=== PATIENT | male | born 1985 | race African-American/Black ===

== ENCOUNTER 2019-09-07 19:32 | Emergency (ER) | payer OTHER ==
[~2019-09-07] VITALS: Ht 167.6 cm; Wt 72.6 kg
--- NOTE | 2019-09-07 19:45 | NUR ---
Patient to ER bed 03 to gown for evaluation. Side rails up.
--- NOTE | 2019-09-07 19:50 | NUR ---
Pt brought by police officers, pt presents to ER with anxiety, pt also states he has bodyaches and intermittent chest pressure, skin pink and warm, respirations even and unlabored, cap refill <3.
[2019-09-07 19:55] VITALS: BP_SYST 142
[2019-09-07] MEDS ORDERED: IPRATROPIUM/ALBUTEROL SULFATE 3 ML AMPUL.NEB (DUONEB) INH ONE (20:15)
--- NOTE | 2019-09-07 20:25 | NUR ---
RT at bedside administering breathing treatment. Pt tolerated well.
--- NOTE | 2019-09-07 20:40 | NUR ---
ER Dr. Bocanegra at bedside examining patient.
[2019-09-07 20:52] LABS: BASOPHILS % (AUTO) 0.5 % (0.0-2.0); EOSINOPHILS % (AUTO) 0.7 % (0.0-4.0); HEMATOCRIT 49.4 % (36-54); HEMOGLOBIN 16.1 g/dL (14.0-18.0); LYMPHOCYTES # (AUTO) 1.7 K/uL (1.0-5.5); LYMPHOCYTES % (AUTO) 28.6 % (20.5-51.5); MEAN CORPUSCULAR HEMOGLOBIN 30 pg (27-31); MEAN CORPUSCULAR HGB CONC 33 % (32-36); MEAN CORPUSCULAR VOLUME 91 fL (79.0-98.0); MONOCYTES # (AUTO) 0.5 K/uL (0.0-1.0); MONOCYTES % (AUTO) 8.7 % (1.7-9.3); NEUTROPHILS # (AUTO) 3.7 K/uL (1.8-7.7); NEUTROPHILS % (AUTO) 61.5 % (40.0-70.0); PLATELET COUNT (AUTO) 210 K/uL (130-430); RED BLOOD CELL COUNT(AUTO) 5.43 MIL/uL (4.2-6.2); RED CELL DISTRIBUTION WIDTH 13.8 % (9.0-15.0); WHITE BLOOD COUNT (AUTO) 6.1 K/uL (4.8-10.8)
[2019-09-07 20:57] LABS: ANION GAP 9 (5-15); CALCIUM 8.8 mg/dL (8.4-11.0); CHLORIDE 104 mmol/L (98-107); CREATININE 1.03 mg/dL (0.55-1.30); GLUCOSE 92 mg/dL (70-99); POTASSIUM 4.4 mmol/L (3.5-5.1); SODIUM SERUM 139 mmol/L (136-145); UREA NITROGEN, BLOOD 9 mg/dL (8-21)
[2019-09-07 21:06] LABS: ALANINE AMINOTRANSFERASE 34 U/L (12-78); ALBUMIN 3.9 g/dL (3.4-4.8); ASPARTATE AMINOTRANSFERASE 31 U/L (10-37); TOTAL BILIRUBIN 0.4 mg/dL (0.0-1.0)
[2019-09-07 21:07] LABS: GFR AFRICAN AMERICAN 105 mL/min (>90)
[2019-09-07] MEDS ORDERED: LORazepam 2 MG/ML VIAL IM ONE (21:15)
[2019-09-07] MEDS ORDERED: LORazepam 2 MG/ML VIAL IVP ONE (21:30)
--- NOTE | 2019-09-07 21:54 | NUR ---
Patient was able to provide urine sample; collected and sent to lab.
[2019-09-07 21:56] LABS: BILIRUBIN,URINE NEGATIVE (NEGATIVE); BLOOD, URINE NEGATIVE (NEGATIVE); COLOR,URINE YELLOW (YELLOW); GLUCOSE,URINE NEGATIVE (NEGATIVE); KETONES,URINE NEGATIVE (NEGATIVE); LEUKOCYTE ESTERASE ,URINE 1+ (NEGATIVE); NITRITE, URINE NEGATIVE (NEGATIVE); PROTEIN URINE NEGATIVE (NEGATIVE)
[2019-09-07 22:16] LABS: CLARITY/URINE SLIGHTLY HAZY (CLEAR)
[2019-09-07 22:18] LABS: BARBITURATE, URINE NEGATIVE (NEG <=200); BENZODIAZEPINE, URINE NEGATIVE (NEG <=150); COCAINE, URINE NEGATIVE (NEG <=150); URINE METHADONE NEGATIVE (NEG <=200)
[2019-09-07 22:19] LABS: CANNABINOID, URINE POSITIVE (NEG <=50); OPIATE, URINE NEGATIVE (NEG <=100); PHENCYCLIDINE SCREEN,URINE NEGATIVE (NEG <=25); UR TRICYCLIC ANTIDEPRESSANTS NEGATIVE (NEG <=300); URINE OXYCODONE SCREEN NEGATIVE (NEG <=100); URINE PROPOXYPHENE SCREEN NEGATIVE (NEG <=300)
[2019-09-07 22:29] LABS: BACTERIA,URINE FEW /HPF (None Seen); MUCUS,URINE 2+ /LPF (None Seen); RBC,URINE 0-3 /HPF (0-3); WBC,URINE 20-50 /HPF (0-3)
[2019-09-07 22:30] LABS: URIC ACID CRYSTALS,URINE 0-10 /HPF (None Seen)
[2019-09-07 22:36] LABS: METHAMPHETAMINES SCREEN,URINE POSITIVE (NEG <=500)
[2019-09-07 22:37] LABS: URINE AMPHETAMINE NEGATIVE (NEG <=500)
--- NOTE | 2019-09-07 22:55 | NUR ---
ASSUMED CARE FROM RAEGAN MARIN.
[2019-09-07] MEDS ORDERED: CEPHALEXIN 500 MG CAPSULE PO ONE (23:00)
[2019-09-07 23:26] VITALS: BP_SYST 136
--- NOTE | 2019-09-07 23:26 | NUR ---
Patient given written and verbal discharge instructions and verbalizes understanding. ER MD Bocanegra discussed with patient the results and treatment provided. Patient in stable condition. ID arm band removed. IV catheter removed intact and dressing applied, no active bleeding. Rx of Keflex 500mg given. Patient educated on pain management and to follow up with PMD. Pain Scale 0/10. Opportunity for questions provided and answered. Medication side effect fact sheet provided.
== END 2019-09-07 23:26 ==
LOC: SED 19:32
DX: N39.0 Urinary tract infection, site not specified (principal); F41.9 Anxiety disorder, unspecified; F19.10 Other psychoactive substance abuse, uncomplicated; R07.89 Other chest pain
CPT/HCPCS: 36415; 80053; 80307; 81000; 84484; 85025; 85379; 87086; 93005; 94640; 96374; 99284; J2060

== ENCOUNTER 2019-09-08 07:00 | Emergency (ER) | payer OTHER ==
[~2019-09-08] VITALS: Ht 167.6 cm; Wt 72.6 kg
[2019-09-08 07:00] VITALS: BP_SYST 123
--- NOTE | 2019-09-08 07:00 | NUR ---
BROUGHT IN BY [facility], PLACED IN BED #4 AND TRIAGED. REPORT GIVEN TO TREVIN
--- NOTE | 2019-09-08 07:05 | NUR ---
BIB Officer in custody for medical clearance. Patient C/O anxiety, right rotater cuff and asthma. Patient A&Ox4, tearful, skin pink & warm, pain 11/13, denies N/D/V. Patient seen in [facility] ER 09/07/2019
--- NOTE | 2019-09-08 07:35 | NUR ---
ER Dr. Perdaza at bedside examining patient.
[2019-09-08 07:46] LABS: EOSINOPHILS % (AUTO) 0.8 % (0.0-4.0); LYMPHOCYTES # (AUTO) 1.7 K/uL (1.0-5.5); MONOCYTES # (AUTO) 0.4 K/uL (0.0-1.0)
[2019-09-08 07:49] LABS: BASOPHILS % (AUTO) 0.8 % (0.0-2.0); HEMATOCRIT 49.7 % (36-54); HEMOGLOBIN 16.5 g/dL (14.0-18.0); LYMPHOCYTES % (AUTO) 40.9 % (20.5-51.5); MEAN CORPUSCULAR HEMOGLOBIN 30 pg (27-31); MEAN CORPUSCULAR HGB CONC 33 % (32-36); MEAN CORPUSCULAR VOLUME 90 fL (79.0-98.0); MONOCYTES % (AUTO) 10.2 % (1.7-9.3); NEUTROPHILS % (AUTO) 47.3 % (40.0-70.0); PLATELET COUNT (AUTO) 191 K/uL (130-430); RED CELL DISTRIBUTION WIDTH 13.7 % (9.0-15.0); WHITE BLOOD COUNT (AUTO) 4.2 K/uL (4.8-10.8)
[2019-09-08] MEDS ORDERED: LORazepam 1 MG TABLET PO ONE (08:00)
[2019-09-08 08:18] LABS: ANION GAP 12 (5-15); CALCIUM 8.6 mg/dL (8.4-11.0); CHLORIDE 103 mmol/L (98-107); CREATININE 1.08 mg/dL (0.55-1.30); GLUCOSE 88 mg/dL (70-99); SODIUM SERUM 141 mmol/L (136-145); UREA NITROGEN, BLOOD 9 mg/dL (8-21)
[2019-09-08 08:25] LABS: GFR AFRICAN AMERICAN 99 mL/min (>90)
[2019-09-08 08:26] LABS: ALANINE AMINOTRANSFERASE 35 U/L (12-78); ASPARTATE AMINOTRANSFERASE 24 U/L (10-37); TOTAL BILIRUBIN 0.5 mg/dL (0.0-1.0)
--- NOTE | 2019-09-08 08:40 | NUR ---
Breakfast tray ordered for patient.
[2019-09-08 08:48] LABS: CKMB RELATIVE INDEX 0.3 (0.0-2.9); CREATINE KINASE MB 1.3 ng/mL (0-3.6)
[2019-09-08 09:16] VITALS: BP_SYST 129
--- NOTE | 2019-09-08 09:16 | NUR ---
Patient given written and verbal discharge instructions and verbalizes understanding. ER MD discussed with patient the results and treatment provided. Patient in stable condition. ID arm band removed. Rx of Ativan given. Patient educated on pain management and to follow up with PMD. Pain Scale 0/10. Opportunity for questions provided and answered. Medication side effect fact sheet provided. Placed call to [facility] for transport.
== END 2019-09-08 09:16 | disposition home or self-care (01) ==
LOC: SED 07:00
DX: F41.9 Anxiety disorder, unspecified (principal); J45.909 Unspecified asthma, uncomplicated
CPT/HCPCS: 36415; 71045; 80053; 82550-TC; 82553-TC; 84484; 85025; 85379; 93005; 99285